=== PATIENT | female | born 1990 | race Caucasian/White ===

== ENCOUNTER 2019-03-11 14:31 | Emergency (ER) | payer OTHER ==
[2019-03-11 14:36] VITALS: BP 136/72; PULSE 103; TEMP 99.7; BMI 27.8
[2019-03-11] MEDS ORDERED: ACETAMINOPHEN 500 MG TABLET (FP) PO ONE (15:13)
--- NOTE | 2019-03-11 15:15 | PDOC ---
History of Present Illness - General Chief Complaint: Sore Throat Stated Complaint: SORE THROAT/WEAK Time Seen by Provider: 03/11/19 14:40 - History of Present Illness Initial Comments: 03/11/19 15:14 29 y/o F with sore throat and DUBOSE x1 day her son is being treated for strep Past History - Past Medical History Allergies/Adverse Reactions: Allergies Allergy/AdvReac Type Severity Reaction Status Date / Time No Known Allergies Allergy Verified 03/11/19 14:36 Home Medications: Ambulatory Orders Penicillin V Potassium [Pen Vee K -] 500 mg PO QID #40 tablet 03/11/19 COPD: No - Psycho Social/Smoking Cessation Hx Smoking History: Never smoked Review of Systems - Review of Systems Constitutional: Yes: Fever HEENTM: Yes: Throat Pain *Physical Exam - Vital Signs Last Vital Signs Temp Pulse Resp BP Pulse Ox 99.7 F H 103 H 18 136/72 99 03/11/19 14:33 03/11/19 14:33 03/11/19 14:33 03/11/19 14:33 03/11/19 14:33 - Physical Exam Comments: 03/11/19 15:15 HEAD: NC/AT EYES: Conjuntiva clear Ears: Canals and TM's normal NOSE: No d/c THROAT: Moist mucous membrances, oral pharanx erythemic with exudate, uvula midline NECK: Supple with anterior adenopathy CARDIAC: S1 S2 LUNGS: CTA Full and Equal breath sounds ABDOMEN: Soft NT ND MS: Full ROM in all joints without edema NEUROLOGIC: No gross sensory or motor deficits, NVID SKIN: Normal color and temperature no lesions or rashes Medical Decision Making - Medical Decision Making 03/11/19 15:38 Rapid strep negative will treat based on examination, history and exposure. Discharge - Discharge Information Problems reviewed: Yes Clinical Impression/Diagnosis: Strep pharyngitis Condition: Stable Disposition: HOME - Admission No - Follow up/Referral - Patient Discharge Instructions Additional Instructions: Please take and finish the entire course of antibiotics. Return to the emergency room should symptoms worsen. Change your tooth brush 48 hours after starting the antibiotics. Tylenol and Motrin as directed for pain. Please, without fail, follow up with your primary care physician in 1-2 days for further evaluation and treatment options. - Post Discharge Activity
[2019-03-11] MEDS ORDERED: ACETAMINOPHEN 325 MG TABLET (FP) ONE (15:16)
== END 2019-03-11 15:52 | disposition home or self-care (01) ==
LOC: JERFT 14:31
DX: J02.0 Streptococcal pharyngitis (principal)
CPT/HCPCS: 87070; 87880; 99281-25

== ENCOUNTER 2020-01-10 11:07 | Emergency (ER) | payer OTHER ==
--- NOTE | 2020-01-10 11:29 | TELE ---
HPI Do you have fever,cough or shortness of breath?: Yes - General Reason For Visit: COVID 19 TESTING Time Seen by Provider: 01/10/20 11:25 History Source: Patient Exam Limitations: Clinical Condition - History of Present Illness Timing/Duration: other Associated Symptoms: reports: denies symptoms 01/10/20 11:26 Patient with no significant past medical history present to [facility] urgent care for COVID testing due to traveling outside the [place] in [place] few days and it could be testing for travel. Patient denies any symptoms. Denies shortness of breath, fever, chills, chest pain. Denies any other symptoms Past History - Medical History Allergies/Adverse Reactions: Allergies Allergy/AdvReac Type Severity Reaction Status Date / Time No Known Allergies Allergy Verified 03/11/19 14:36 Home Medications: Ambulatory Orders Penicillin V Potassium [Pen Vee K -] 500 mg PO QID #40 tablet 03/11/19 Penicillin V Potassium [Pen Vee K -] 500 mg PO QID #40 tablet 03/11/19 COPD: No - Psycho-Social/Smoking History Smoking History: Never smoked Review of Systems - Review of Systems Able to Perform ROS?: Yes Limited Wolof proficient: No Constitutional: No: Chills, Fever, Malaise, Weakness HEENTM: No: Symptoms Reported, See HPI, Eye Pain, Blurred Vision, Tearing, Recent change in vision, Double Vision, Cataracts, Ear Pain, Ocular Prothesis, Ear Discharge, Nose Pain, Nose Congestion, Tinnitus, Nose Bleeding, Hearing Loss, Throat Pain, Throat Swelling, Mouth Pain, Dental Problems, Difficulty Swallowing, Mouth Swelling, Other Respiratory: No: Symptoms reported, See HPI, Cough, Orthopnea, Shortness of Breath, SOB with Exertion, SOB at Rest, Stridor, Wheezing, Productive cough, Hemoptysis, Other Cardiac (ROS): No: Symptoms Reported, See HPI, Chest Pain, Edema, Irregular Heart Rate, Lightheadedness, Palpitations, Syncope, Chest Tightness, Other ABD/GI: No: Symptoms Reported, Nausea, Vomiting Musculoskeletal: No: Symptoms Reported Integumentary: No: Symptoms Reported Neurological: No: Symptoms reported All Other Systems: Reviewed and Negative *Physical Exam - Physical Exam General Appearance: Yes: Nourished, Appropriately Dressed. No: Apparent Distress HEENT: positive: Normal ENT Inspection, Normal Voice, Pharynx Normal Respiratory/Chest: negative: Normal Breath Sounds, Respiratory Distress Musculoskeletal: positive: Normal Inspection Extremity: positive: Normal Inspection, Normal Range of Motion Integumentary: positive: Normal Color Neurologic: positive: Fully Oriented, Alert, Normal Mood/Affect, Normal Response - Medical Decision Making 01/10/20 11:28 Patient with no medical history present to [facility] urgent care for COVID testing for travel. Patient asymptomatic. COVID tests ordered for patient to go through drive-through testing for testing. Patient educated on quarantine restrictions if symptomatic and strict follow-up instructions discussed with patient. Discharge Diagnosis at time of Disposition: Encounter by telehealth for suspected COVID-19 - Referrals - Patient Instructions - Discharge Disposition: HOME Condition at time of Disposition: Stable
== END 2020-01-10 12:26 | disposition home or self-care (01) ==
LOC: JVIRT 11:07
DX: Z20.828 Contact with and (suspected) exposure to other viral communicable diseases (principal)
CPT/HCPCS: Q3014-GT; U0003